=== PATIENT | female | born 1970 | race Caucasian/White ===

== ENCOUNTER 2016-08-06 13:19 | Emergency (ER) | payer OTHER ==
[~2016-08-06] VITALS: Ht 149.9 cm; Wt 79.4 kg
[~2016-08-06 13:19] MED LIST: BACTROBAN OINT.15 GM TOP; ESCITALOPRAM10 MG PO; LEVOTHROID0.05 MG PO; MIRALAX17 GM PO; MOTRIN 600 MG600 MG PO; PRED FORTE1 ML OD; PRILOSEC 20MG C20 MG PO; XANAX 0.25MG0.25 MG
--- NOTE | 2016-08-06 16:11 | ED GENERAL ADULT ---
History of Present Illness General Chief Complaint: General Adult Stated Complaint: UPPER BACK PAIN SINCE YESTERDAY Source: patient Exam Limitations: no limitations Vital Signs & Intake/Output Vital Signs & Intake/Output Vital Signs Date Time Temp Pulse Resp B/P Pulse O2 O2 Flow FiO2 Ox Delivery Rate 08/06 1835 84 18 127/86 98 Room Air 08/06 1655 98 Room Air 08/06 1327 98.4 93 18 138/84 98 Room Air Allergies Coded Allergies: No Known Allergies (10/19/15) Reconcile Medications Alprazolam 0.25 MG TABLET 1 TAB PO BIDP PRN ANXIETY (Reported) Escitalopram Oxalate 10 MG TABLET 1 TAB PO DAILY DEPRESSION (Reported) Levothyroxine Sodium (Synthroid) 100 MCG TABLET 1 TAB PO DAILY THYROID HEALTH (Reported) Oxycodone HCl/Acetaminophen (Percocet 5-325 MG Tablet) 5 MG-325 MG TABLET 1 TAB PO BID PRN PAIN Prednisone 20 MG TABLET 2 TAB PO DAILY RASH Triage Note: 46 Y/O FEMALE C/O PAIN TO R SHOULDER BLADE SINCE YESTERDAY. PT STATES IT STARTED AN "ITCHY RASH FEELING", THEN BECAME A "BURNING PAIN LIKE SUNBURN". DENIES NOTICING RASH BUT STATES PAIN IS ONLY IN ONE AREA AND CONTINUES TO FEEL "BURNING". Triage Nurses Notes Reviewed? yes Onset: Abrupt Duration: hour(s): Timing: recent history HPI: 08/06/16 5 PM This 46-year-old female presents to the emergency department complaining of right upper back pain and rash. The patient states that she was in her usual state of health until yesterday when she developed a sudden onset of severe right upper back pain. She says that she worse with palpation and has increased warmth and redness. She says she does have a history of a pneumonia. No shortness of breath no fever no other complaints. The onset of the symptoms were abrupt, the duration has been 24 hours, the severity is significant; as her symptoms required to come to the emergency department for care. On physical examination her lungs are clear. She is otherwise unremarkable other than a localized area of erythema to the right posterior hemithorax. The rash is not vesicular and not consistent with shingles. There is some increased warmth and it is tender. The patient states it is pruritic. It appears to be consistent with a focal area of contact dermatitis. The patient denies any burn or contact with anything that could've caused the rash. Past History Travel History Traveled to [place] past 21 day No Medical History Any Pertinent Medical History? see below for history Neurological: NONE EENT: NONE Cardiovascular: NONE Respiratory: NONE Gastrointestinal: NONE Hepatic: NONE Renal: NONE Musculoskeletal: NONE Psychiatric: PANIC DISORDER Endocrine: hypothyroidism Blood Disorders: NONE Cancer(s): NONE TITLE SPECIALIST/Reproductive: NONE History of MRSA: No History of VRE: No History of CDIFF: No Tetanus Vaccine: 07/19/15 Surgical History Surgical History: non-contributory Psychosocial History Who do you live with Spouse What is your primary language Dominican Tobacco Use: Current Daily Use Daily Tobacco Use Amount/Type: => 5 Cigarettes daily Family History Hx Contributory? No Review of Systems Review of Systems Constitutional: Denies: fever. EENTM: Denies: visual changes. Respiratory: Denies: cough, short of breath. Cardiovascular: Denies: chest pain. GI: Denies: abdominal pain. Genitourinary: Reports: no symptoms. Musculoskeletal: Reports: see HPI. Skin: Reports: see HPI. Neurological/Psychological: Reports: no symptoms. Hematologic/Endocrine: Denies: bruising, bleeding. Physical Exam Physical Exam General Appearance: alert, awake, anxious, mild distress Head: atraumatic, normal appearance Eyes: Bilateral: normal appearance, PERRL, EOMI. Ears, Nose, Throat: normal pharynx, normal ENT inspection Neck: normal inspection, supple Respiratory: normal breath sounds, chest non-tender, no respiratory distress Cardiovascular: regular rate/rhythm Peripheral Pulses: 4+ radial (R), 4+ radial (L) Gastrointestinal: non-tender Back: tenderness right posterior hemithorax Extremities: normal inspection, normal range of motion Neurologic/Psych: no motor/sensory deficits, awake, alert, oriented x 3 Skin: rash Comments: The patient has a 4" x 4" area of blanching erythema, at the right inferior scapular region. It is tender. It is pruritic according to the patient. No vesicular lesions are seen. Heart is regular lungs are clear. Core Measures ACS in differential dx? No CVA/TIA Diagnosis: No Severe Sepsis Present: No Septic Shock Present: No Progress Differential Diagnoses I considered the following diagnoses in my evaluation of the patient: [Lyme disease, insect bite, thermal burn, muscle strain, shingles, abscess, contact dermatitis, allergic reaction] Plan of Care: Orders Procedure Date/time Status XRY-CHEST XRAY, PA AND LATERAL 08/06 1658 Active Initial ED EKG: none Departure Departure Disposition: HOME OR SELF CARE Condition: Stable Clinical Impression Primary Impression: Back pain Secondary Impressions: Rash Referrals: PATIENT HAS NO PRIMARY CARE DR (PCP/Family) Departure Forms: Customer Survey General Discharge Information Prescriptions: Current Visit Scripts Prednisone 2 TAB PO DAILY #10 TAB Oxycodone HCl/Acetaminophen (Percocet 5-325 MG Tablet) 1 TAB PO BID PRN PAIN #10 TAB Comments Chest x-ray is negative PATIENT: DEBBIE PERALTA PRESENT AGE: 46 PATIENT ACCOUNT NO: [id number] : 70 LOCATION: [facility] ORDERING PHYSICIAN: PILLO BEAN DO SERVICE DATE: 08/06/16-1658 EXAM TYPE: RAD - XRY-CHEST XRAY, PA AND LATERAL EXAMINATION: XR CHEST CLINICAL INFORMATION: Back pain. COMPARISON: None TECHNIQUE: 2 views of the chest were obtained. FINDINGS: Both lungs are expanded and clear of acute process. The heart size and pulmonary vascularity is normal. No gross bony abnormality seen. IMPRESSION: Unremarkable chest exam DICTATED BY: EDILMA MCCONNELL MD DATE/TIME DICTATED:08/06/161809 CREDIT ASSOCIATE:ARMINDA DATE/TIME TRANSCRIBED:08/06/161809 CONFIDENTIAL, DO NOT COPY WITHOUT APPROPRIATE AUTHORIZATION. <Electronically signed in Other Vendor System> SIGNED BY: EDILMA MCCONNELL MD 08/06/161813 The patient's chest x-ray was negative. The rash is itchy and most consistent with a focal contact dermatitis. There is no fever. Cellulitis unlikely. She was put on prednisone and given Percocet to take as needed for pain. She will follow-up with her doctor in the emergency department in 48 hours for reevaluation. Critical Care Note Critical Care Note Critical Care Time: non-applicable
[2016-08-06] MEDS ORDERED: SYNTHROID100 MCG PO (16:54)
[2016-08-06] MEDS ORDERED: ALPRAZOLAM0.25 M1 PO (16:54)
[2016-08-06] MEDS ORDERED: ESCITALOPRAM OX10 MG PO (16:54)
--- NOTE | 2016-08-06 18:14 | RADIOLOGY REPORT ---
EXAMINATION: XR CHEST CLINICAL INFORMATION: Back pain. COMPARISON: None TECHNIQUE: 2 views of the chest were obtained. FINDINGS: Both lungs are expanded and clear of acute process. The heart size and pulmonary vascularity is normal. No gross bony abnormality seen. IMPRESSION: Unremarkable chest exam
[2016-08-06] MEDS ORDERED: PREDNISONE20 M1 PO (18:24)
[2016-08-06] MEDS ORDERED: PERCOCET 5-3251 EACH PO (18:24)
[2016-08-06 18:35] VITALS: BP 127/86
== END 2016-08-06 18:44 ==
LOC: ERH 13:19
DX: M54.6 Pain in thoracic spine (principal); R21 Rash and other nonspecific skin eruption

== ENCOUNTER 2016-08-12 13:32 | Emergency (ER) | payer OTHER ==
[~2016-08-12] VITALS: Ht 149.9 cm; Wt 79.4 kg
[~2016-08-12 13:32] MED LIST changes: +ALPRAZOLAM0.25 M1 PO; +ESCITALOPRAM OX10 MG PO; +PERCOCET 5-3251 EACH PO; +PREDNISONE20 M1 PO; +SYNTHROID100 MCG PO
[2016-08-12 13:38] VITALS: BP 136/93
[2016-08-12] MEDS ORDERED: ADVAIR 250-501 EACH INH (13:44)
--- NOTE | 2016-08-12 14:10 | ED GENERAL ADULT ---
History of Present Illness General Chief Complaint: Lower Extremity Problems Stated Complaint: RT SHOULDER PAIN/ DR. BEAN SENT PT IN Source: patient Exam Limitations: no limitations Vital Signs & Intake/Output Vital Signs & Intake/Output Vital Signs Date Time Temp Pulse Resp B/P Pulse O2 O2 Flow FiO2 Ox Delivery Rate 08/12 1338 97.4 98 18 136/93 98 Room Air Allergies Coded Allergies: No Known Allergies (10/19/15) Reconcile Medications Alprazolam 0.25 MG TABLET 1 TAB PO BIDP PRN ANXIETY (Reported) Escitalopram Oxalate 10 MG TABLET 1 TAB PO DAILY DEPRESSION (Reported) Fluticasone/Salmeterol (Advair 250-50 Diskus) 250 MCG-50 MCG/DOSE BLST.W.DEV 1 PUF INH PRN RESPIRATORY (Reported) Gabapentin 300 MG CAPSULE 1 CAP PO TID PAIN Levothyroxine Sodium (Synthroid) 100 MCG TABLET 1 TAB PO DAILY THYROID HEALTH (Reported) Oxycodone HCl/Acetaminophen (Percocet 5-325 MG Tablet) 5 MG-325 MG TABLET 1 TAB PO BID PRN PAIN Oxycodone HCl/Acetaminophen (Percocet 5-325 MG Tablet) 5 MG-325 MG TABLET 1 TAB PO BID PRN PAIN Prednisone 20 MG TABLET 2 TAB PO DAILY RASH Triage Note: 46 Y/O FEMALE STATES SHE IS HERE FOR RE EVAL OF PAIN IN UPPER BACK AND RASH; STATES SYMPTOMS STARTED LAST THURSDAY. PT STATES SHE HAS BEEN TAKING PREDNISONE AND PERCOCET WITH NO RELIEF. STATES SHE CALLED DR BEAN AND WAS DIRECTED TO RETURN FOR RE EVAL Triage Nurses Notes Reviewed? yes Onset: Abrupt Duration: week(s): Timing: recent history HPI: 08/12/16 2 pm This is a 46-year-old female who presents to the emergency department for reevaluation by me for ongoing right sided posterior neuropathic pain. The patient states that she was in her usual state of health until approximately 1 weeks ago when she developed the sudden onset of severe right-sided posterior hemithorax pain. The onset of the symptoms abrupt, the duration has been approximately 1 week, the severity is significant as her symptoms required her to come to the emergency department for care. On physical exam she does have neuropathic right sided posterior hemithorax pain. There is no shortness of breath there is no weakness. She has no significant rash. She does have a few scattered abrasions I think these are unrelated to her underlying condition. Disc herniation remains a possibility. She will be sent for an outpatient MRI of the thoracic spine. I will try gabapentin and include Percocet for breakthrough pain. She was given a primary care doctor to follow up with. Past History Travel History Traveled to [place] past 21 day No Medical History Any Pertinent Medical History? see below for history Neurological: NONE EENT: NONE Cardiovascular: NONE Respiratory: NONE Gastrointestinal: NONE Hepatic: NONE Renal: NONE Musculoskeletal: NONE Psychiatric: PANIC DISORDER Endocrine: hypothyroidism Blood Disorders: NONE Cancer(s): NONE DIRECTOR CARDIOLOGY/Reproductive: NONE History of MRSA: No History of VRE: No History of CDIFF: No Tetanus Vaccine: 07/19/15 Surgical History Surgical History: non-contributory Psychosocial History Who do you live with Spouse What is your primary language Estonian Tobacco Use: Current Daily Use Daily Tobacco Use Amount/Type: => 5 Cigarettes daily Family History Hx Contributory? No Review of Systems Review of Systems Constitutional: Denies: fever. EENTM: Denies: visual changes. Respiratory: Denies: short of breath. Cardiovascular: Denies: chest pain. GI: Denies: abdominal pain. Genitourinary: Reports: no symptoms. Musculoskeletal: Reports: see HPI. Skin: Denies: rash (few abrasions). Neurological/Psychological: Reports: see HPI. Hematologic/Endocrine: Denies: bleeding. Physical Exam Physical Exam General Appearance: well developed/nourished, alert, awake, anxious, mild distress Head: atraumatic, normal appearance Eyes: Bilateral: normal appearance, PERRL, EOMI. Ears, Nose, Throat: normal pharynx, normal ENT inspection, hearing grossly normal Neck: normal inspection, supple Respiratory: normal breath sounds, chest non-tender, no respiratory distress Cardiovascular: regular rate/rhythm Peripheral Pulses: 4+ radial (R), 4+ radial (L) Gastrointestinal: non-tender Back: decreased range of motion Extremities: normal inspection, normal range of motion Neurologic/Psych: no motor/sensory deficits, awake, alert, oriented x 3 Skin: intact, normal color, warm/dry Comments: Upon physical examination the patient does have isolated tenderness, located in the infrascapular area. There is free range of motion to the right arm. She has no shortness of breath. No change in the pain on deep breathing. She does have tenderness to palpation. She describes a nervelike pain. I do not see any rash. Core Measures ACS in differential dx? No CVA/TIA Diagnosis: No Severe Sepsis Present: No Septic Shock Present: No Progress Differential Diagnoses I considered the following diagnoses in my evaluation of the patient: [Shingles, Lyme disease, neuropathy, disc herniation, thoracic compression fracture, compressing lesion of the thoracic spine, costochondritis, Plan of Care: The patient was treated with gabapentin and Percocet for breakthrough pain. An MRI of the thoracic spine was requested. She will follow up with [facility] practice. Return immediately should she develop a rash or if she is worse in any way. Initial ED EKG: none Departure Departure Disposition: HOME OR SELF CARE Condition: Stable Clinical Impression Primary Impression: Neuropathic pain Referrals: PATIENT HAS NO PRIMARY CARE DR (PCP/Family) Departure Forms: Customer Survey General Discharge Information Prescriptions: Current Visit Scripts Gabapentin 1 CAP PO TID #30 CAP Oxycodone HCl/Acetaminophen (Percocet 5-325 MG Tablet) 1 TAB PO BID PRN PAIN #10 TAB Critical Care Note Critical Care Note Critical Care Time: non-applicable
[2016-08-12] MEDS ORDERED: GABAPENTIN300 M2 PO (14:14)
[2016-08-12] MEDS ORDERED: PERCOCET 5-3251 EACH PO (14:14)
== END 2016-08-12 14:43 ==
LOC: ERH 13:32
DX: G62.9 Polyneuropathy, unspecified (principal)